=== PATIENT | male | born 1990 | race Hispanic/Latino ===

== ENCOUNTER 2017-08-24 00:36 | Emergency (ER) | payer OTHER ==
[2017-08-24] MEDS ORDERED: Sodium Chloride 0.9% 1,000 ML IV STA (00:59)
[2017-08-24] MEDS ORDERED: Iohexol 240 (50 ml) PO ONE (01:09)
--- NOTE | 2017-08-24 01:15 | ED PDOC ---
"HPI: Abdomen Time Seen by Provider: 08/24/17 00:48 Chief Complaint (Nursing): Abdominal Pain Chief Complaint (Provider): abdominal pain History Per: Patient History/Exam Limitations: no limitations Onset/Duration Of Symptoms: Hrs (1), Sudden Onset Current Symptoms Are (Timing): Still Present Severity: Moderate Location Of Pain/Discomfort: Periumbilical Quality Of Discomfort: Sharp Associated Symptoms: Nausea. denies: Vomiting, Diarrhea, Loss Of Appetite, Back Pain Exacerbating Factors: None Alleviating Factors: None Last Bowel Movement: Today Additional Complaint(s): 27yo male states got up and felt sudden onset abdominal pain, became weak and dizzy and roommate thought was going to pass out. Denies vomiting, diarrhea, fever or cough. Admits to smoking marijuana tonight, denies alcohol use. Past Medical History Reviewed: Historical Data, Nursing Documentation, Vital Signs Vital Signs: Last Vital Signs Temp 97.5 F L 08/24/17 00:46 Pulse 70 08/24/17 00:46 Resp 18 08/24/17 00:46 BP 115/59 L 08/24/17 00:46 Pulse Ox 100 08/24/17 01:17 - Medical History PMH: No Chronic Diseases - Surgical History Surgical History: No Surg Hx - Family History Family History: States: Unknown Family Hx - Living Arrangements Living Arrangements: With Friends/Others - Social History Current smoker - smoking cessation education provided: No Alcohol: Occasional Drugs: Cannabis - Home Medications Home Medications: Ambulatory Orders Medication Instructions Recorded Amoxicillin/Clavulanate [Augmentin 1 tab PO BID #14 tab 08/24/17 875 MG-125 MG] Ibuprofen [Motrin Tab] 600 mg PO Q6 PRN #15 tab 08/24/17 - Allergies Allergies/Adverse Reactions: Allergies Allergy/AdvReac Type Severity Reaction Status Date / Time No Known Allergies Allergy Verified 08/24/17 00:49 Review of Systems ROS Statement: Except As Marked, All Systems Reviewed And Found Negative Constitutional: Negative for: Fever, Chills Cardiovascular: Negative for: Chest Pain, Palpitations Respiratory: Negative for: Cough, Shortness of Breath Gastrointestinal: Positive for: Abdominal Pain. Negative for: Nausea, Vomiting , Diarrhea Genitourinary Male: Negative for: Dysuria, Incontinence Musculoskeletal: Negative for: Neck Pain Skin: Negative for: Rash, Lesions, Jaundice Neurological: Negative for: Weakness, Numbness Psych: Negative for: Anxiety Physical Exam - Reviewed Nursing Documentation Reviewed: Yes Vital Signs Reviewed: Yes - Physical Exam Appears: Positive for: Well, Non-toxic, No Acute Distress Head Exam: Positive for: ATRAUMATIC, NORMAL INSPECTION, NORMOCEPHALIC Skin: Positive for: Normal Color, Warm, DRY Eye Exam: Positive for: EOMI. Negative for: Periorbital swelling ENT: Positive for: Normal ENT Inspection Neck: Positive for: Normal, Painless ROM Cardiovascular/Chest: Positive for: Regular Rate, Rhythm. Negative for: Tachycardia Respiratory: Positive for: Normal Breath Sounds. Negative for: Respiratory Distress Gastrointestinal/Abdominal: Positive for: Bowel Sounds, Soft, Tenderness ( umbilical hernia tender with surrounding erythema to umbilicus) Back: Positive for: Normal Inspection Extremity: Positive for: Normal ROM Neurologic/Psych: Positive for: Alert, Oriented. Negative for: Motor/Sensory Deficits - Laboratory Results Result Diagrams: 08/24/17 01:26 08/24/17 01:26 - ECG O2 Sat by Pulse Oximetry: 100 Medical Decision Making Medical Decision Making: Concern for incarcerated umbilical hernia. Workup initiated w bloodwork, CT abd pelv and pain control, IVF. labs reviewed, normal WBC CT: TECHNIQUE: Axial computed tomography images of the abdomen and pelvis with intravenous contrast. All CT scans at this facility use one or more dose reduction techniques, viz.: automated exposure control; ma/kV adjustment per patient size (including targeted exams where dose is matched to indication; i.e. head); or iterative reconstruction technique. Coronal and sagittal reformatted images were created and reviewed. CONTRAST: 95 mL of OMNI 300 administered intravenously. COMPARISON: No relevant prior studies available. FINDINGS: Lower thorax: No acute findings. ABDOMEN: Liver: Unremarkable. No mass. Gallbladder and bile ducts: Unremarkable. No calcified stones. No ductal dilation. Pancreas: Unremarkable. No mass. No ductal dilation. Spleen: Unremarkable. No splenomegaly. Adrenals: Unremarkable. No mass. Kidneys and ureters: Unremarkable. No solid mass. No hydronephrosis. Stomach and bowel: Unremarkable. No obstruction. No mucosal thickening. Appendix: A normal appendix is identified. PELVIS: Bladder: Unremarkable. No mass. Reproductive: Unremarkable as visualized. JOSH DUGAN | Preliminary Radiology Report [employer] (QA) DISCREPANCY? If there is a discrepancy between the preliminary and final interpretation, please notify [facility] via [email or web address]. If you do not have access to our QA portal, call our QA team at [phone] CONFIDENTIALITY STATEMENT This report is intended only for the use of the referring physician, and only in accordance with law, If you received this in error, call [phone] Page 2 of 2 ABDOMEN and PELVIS: Intraperitoneal space: Unremarkable. No free air. No significant fluid collection. Bones/joints: No acute fracture. No dislocation. Soft tissues: There is a fat-containing umbilical hernia. There is soft tissue density and stranding of the herniated fat. No obstruction or strangulation of bowel. Vasculature: Unremarkable. No abdominal aortic aneurysm. Lymph nodes: Unremarkable. No enlarged lymph nodes. IMPRESSION: No acute intra-abdominal or pelvic abnormality.There is a fat-containing umbilical hernia. There is soft tissue density and stranding of the herniated fat. No obstruction or strangulation of bowel. Thank you for allowing us to participate in the care of your patient. Dictated and Authenticated by: Comfort Garcia MD 08/24/2017 4:48 AM Eastern Time ([place] & [place]) On re-eval patient w mild spontaneous drainage of umbilicus mild pustulent material improved pain/ erythema ? infected urachal cyst, rare in adults although states hes had symptoms on/off for years. Also signficant weight loss could be abscess. Pt does not want to stay in hospital, prefers trial outpt therapy and followup surgeon after [place]. Indications for return to ER discussed, Rx augmentin and motrin, monitor for expanding pain, erythema, fever or drainage. No weight lifting until repaired./ Disposition - Clinical Impression Clinical Impression: Umbilical hernia, Infected urachal cyst - Patient ED Disposition Is Patient to be Admitted: No Counseled Patient/Family Regarding: Studies Performed, Diagnosis, Need For Followup, Rx Given - Disposition Referrals: Manny Yo MD [Staff Provider] - Daryl Mendenhall MD [Staff Provider] - Disposition: Routine/Home Disposition Time: 07:27 Condition: STABLE Additional Instructions: Drink plenty of fluids, avoid alcohol. Take antibiotic as directed. Return to ER for any expansion of redness, pain, fever, or drainage from belly button. Do not weight lift until repaired.' Prescriptions: Amoxicillin/Clavulanate [Augmentin 875 MG-125 MG] 1 tab PO BID #14 tab Ibuprofen [Motrin Tab] 600 mg PO Q6 PRN #15 tab PRN Reason: Pain, Moderate (4-7) Instructions: Umbilical Hernia (ED), Cyst (ED) Forms: [employer] ([place])"
[2017-08-24] MEDS ORDERED: Iohexol 240 (50 ml) ONE (01:17)
[2017-08-24 01:37] LABS: BASO % 0.4 % (0.0-2.0); EOS # 0.1 K/uL (0.0-0.7); EOS % 0.7 % (0.0-4.0); HEMATOCRIT 41.3 % (35.0-51.0); LYMPH # 1.6 K/uL (1.0-4.3); LYMPH % 18.9 % (20.0-40.0); MEAN CELL VOLUME 89.5 fl (80.0-94.0); MEAN CORPUSCULAR HEMOGLOBIN 29.6 pg (27.0-31.0); MEAN CORPUSCULAR HGB CONC 33.1 g/dL (33.0-37.0); MEAN PLATELET VOLUME 9.5 fl (7.2-11.7); MONO # 0.9 K/uL (0.0-0.8); MONO % 10.7 % (0.0-10.0); NEUT % 69.3 % (50.0-75.0); NRBC % 0.1 % (0.0-0.0); RED CELL DISTRIBUTION WIDTH 13.5 % (11.5-14.5); WHITE BLOOD COUNT 8.7 K/uL (4.8-10.8)
[2017-08-24 01:39] LABS: RBC URINE 1 /hpf (0-3); URINE BILIRUBIN NEGATIVE (NEGATIVE); URINE BLOOD NEGATIVE (NEGATIVE); URINE COLOR YELLOW (YELLOW); URINE GLUCOSE (UA) NEG (Normal); URINE KETONE NEGATIVE (NEGATIVE); URINE LEUKOCYTE ESTERASE NEG Leu/uL (Negative); URINE PROTEIN NEGATIVE (NEGATIVE); URINE UROBILINOGEN 0.2-1.0 mg/dL (0.2-1.0); WBC URINE < 1 /hpf (0-5)
[2017-08-24 01:56] LABS: ALKALINE PHOSPHATASE 47 U/L (38-126); ALT/SGPT 50 U/L (21-72); AST/SGOT 34 U/L (17-59); BILIRUBIN,TOTAL 0.5 mg/dl (0.2-1.3); BLOOD UREA NITROGEN 30 mg/dl (9-20); CALCIUM 9.2 mg/dL (8.4-10.2); CARBON DIOXIDE 25 mmol/L (22-30); CHLORIDE 98 mmol/L (98-107); GFR AFRICAN-AMERICAN > 60; GLUCOSE,RANDOM 93 mg/dL (75-110); LIPASE 77 U/L (23-300); POTASSIUM 3.8 MMOL/L (3.6-5.0); SODIUM 138 mmol/l (132-148); TOTAL PROTEIN 7.2 G/DL (6.3-8.2)
[2017-08-24 01:57] LABS: ALB/GLOB RATIO 1.6 (1.0-2.1)
[2017-08-24] MEDS ORDERED: Iohexol 300 100 ML IJ ONE (03:53)
[2017-08-24] MEDS ORDERED: Piperacillin/Tazobact 4.5 GM in Sodium Chloride 0.9% 100 ML IVPB STA (05:31)
[2017-08-24 07:39] VITALS: BP 110/57; PULSE 62; RESP 16; TEMP 97.7; O2SAT 99
--- NOTE | 2017-08-24 08:03 | CT ---
PROCEDURE: CT Abdomen and Pelvis with contrast HISTORY: umbilical hernia r/o incarceration/strangulation COMPARISON: None TECHNIQUE: Contrast dose: 95 cc Omnipaque 300 Radiation dose: Total exam DLP = 957.0 mGy-cm. This CT exam was performed using one or more of the following dose reduction techniques: Automated exposure control, adjustment of the mA and/or kV according to patient size, and/or use of iterative reconstruction technique. FINDINGS: LOWER THORAX: Unremarkable. LIVER: Hepatic steatosis. No focal masses. No intrahepatic bile duct dilatation or perihepatic ascites. GALLBLADDER AND BILE DUCTS: Unremarkable. PANCREAS: Unremarkable. No gross lesion or ductal dilatation. SPLEEN: Top-normal spleen without focal abnormality ADRENALS: Unremarkable. No mass. KIDNEYS AND URETERS: Unremarkable. No hydronephrosis. No solid mass. VASCULATURE: Unremarkable. No aortic aneurysm. BOWEL: Constipation without fecal impaction or obstruction. APPENDIX: Normal appendix. PERITONEUM: Unremarkable. No free fluid. No free air. LYMPH NODES: Unremarkable. No enlarged lymph nodes. BLADDER: Unremarkable. REPRODUCTIVE: Unremarkable. BONES: No acute fracture. OTHER FINDINGS: Fat containing periumbilical hernia. Stranding of the periumbilical fat may represent acute inflammatory component. No evidence of bowel herniation, proximal obstruction. IMPRESSION: Periumbilical hernia containing fat. There is an inflammatory component to the fat. There is no evidence of mechanical bowel obstruction. Concordant results (preliminary interpretation) provided by [employer]. Procedure Completed: 470 a.m. Preliminary ([facility]) Report: Dictated and Authenticated: 04:48 Final Interpretation: 08:01
== END 2017-08-24 07:39 | disposition home or self-care (01) ==
LOC: H.ER 00:36
DX: K42.9 Umbilical hernia without obstruction or gangrene (principal); Q64.4 Malformation of urachus
CPT/HCPCS: 74177; 80053; 81003; 83690; 85025; 96374; 99282; J1885; J2543; J7040; Q9966; Q9967